=== PATIENT | female | born 1985 | race Caucasian/White ===

== ENCOUNTER 2024-05-15 00:32 | Emergency (ER) | payer OTHER, SELFPAY ==
[2024-05-15 00:36] VITALS: BP 139/94; PULSE 78; TEMP 36.5; O2SAT 100; BMI 37.1
--- NOTE | 2024-05-15 01:19 | CT_ITS ---
[address] [address] Patient Name: AMI BOWER MRN: [id number] date: 1985 Sex: F Assigned Patient Location: ER Current Patient Location: Accession/Order Number: [id number] Exam Date: 05/15/2024 02:00 Report Date: 05/15/2024 03:38 At the request of: JUNI MCKEON Procedure: CT soft tissue neck w con EXAMINATION: CT Soft Tissue Neck with IV Contrast TECHNIQUE: Axial CT imaging of the neck was performed following the intravenous injection of contrast material according to the standard protocol. Sagittal and coronal 2-D reformats were made from source images. CONTRAST: The amount and type of contrast are recorded int he medical record. QPP DOCUMENTATION: At least one of the following dose reduction techniques was utilized: Iterative reconstruction, and/or Automatic Exposure Control, and/or mA/kV adjustment based on body size. INDICATION: . FB sensation pharynx COMPARISON: None FINDINGS: Pharynx/Larynx: The nasopharynx, oropharynx, hypopharynx, and larynx are symmetric and without evidence of mass. The visualized trachea and visualized esophagus are unremarkable. Oral Cavity: The visualized portions of the oral tongue and floor of mouth are unremarkable. Lymph Nodes: No pathologically enlarged cervical lymph nodes. Vascular: The vascular structures of the neck are unremarkable. Thyroid: The thyroid gland is unremarkable. Parotid and Submandibular Glands: The submandibular and parotid glands have a normal appearance. Osseous Structures: Unremarkable. Orbits and Paranasal Sinuses: The visualized orbits and paranasal sinuses are unremarkable. Intracranial: The visualized intracranial structures are unremarkable. Lung Apices: The visualized lung apices are clear. CT/CT soft tissue neck w con IMPRESSION: No suspicious masses, fluid collections, or adenopathy. Electronically authenticated by: YOGI GERONIMO Date: 05/15/2024 03:38
--- NOTE | 2024-05-15 01:20 | ED.URI1 ---
HPI - URI/Sore Throat General Chief Complaint: Upper Respiratory Infection Stated Complaint: NEED 2ND OPINION SORE THROAT Time Seen by Provider: 05/15/24 01:10 Source: patient Limitations: no limitations History of Present Illness HPI Narrative: patient presents complaining of sensation of something in her throat. Not able to provide any history of what may possibly stuck in her throat. Throat is sore elder. when swallowing something sweet or spicy. No problem swallowing water. Required intubation 2 weeks ago due to a procedure for her hip. Does not recall any problem with her throat after the procedure. Her symptoms present past 2-3 days. Has history of GERD but does not take any medication for GERD. Did have a fever last week that has not returned Related Data Home Medications ?Medication ?Instructions ?Recorded ?Confirmed acetaminophen 500 mg tablet mg 05/15/24 amoxicillin 875 mg tablet mg 05/15/24 aspirin 81 mg tablet,delayed mg 05/15/24 release buspirone 15 mg tablet mg 05/15/24 cyclobenzaprine 10 mg tablet mg 05/15/24 docusate sodium 100 mg capsule mg PO 05/15/24 lurasidone 40 mg tablet mg 05/15/24 meloxicam 15 mg tablet mg 05/15/24 naproxen 500 mg tablet mg 05/15/24 olanzapine 10 mg tablet mg 05/15/24 oxycodone 5 mg tablet mg 05/15/24 trazodone 100 mg tablet mg 05/15/24 Allergies Allergy/AdvReac Type Severity Reaction Status Date / Time No Known Drug Allergies Allergy Verified 05/15/24 00:41 Review of Systems ROS Status of ROS 10 or more systems reviewed and unremarkable except as noted in history and below Exam Constitutional Vital Signs, click to edit/add: Last Vital Signs Temp 97.7 F 05/15/24 00:36 Pulse 78 05/15/24 00:36 Resp 14 05/15/24 00:36 BP 139/94 H 05/15/24 00:36 Pulse Ox 100 05/15/24 00:36 O2 Del Method Room Air 05/15/24 00:36 Common normals: no apparent distress, average body habitus, oriented x3, no limitations, healthy appearing, alert and well nourished [facility] Common normals: normocephalic and head/scalp atraumatic Other: mild erythema of the pharynx Eye Common normals: EOMs intact bilaterally and conjunctivae normal Neck & C-Spine Common normals: full ROM and no lymphadenopathy Respiratory Common normals: normal respiratory effort, no retractions, no use of accessory muscles and clear to auscultation bilaterally Cardio Common normals: regular rate, regular rhythm, S1 normal heart sound and S2 normal heart sound GI Common normals: Normal to inspection, nondistended, normoactive bowel sounds present, soft to palpation and non-tender Extremity Common normals: normal to inspection Neuro Common normals: oriented x3, CN's II-XII intact bilaterally, moves all extremities and no focal motor deficits Psych Appearance: grossly normal Course Vital Signs Vital signs: Vital Signs Temperature 97.7 F 05/15/24 00:36 Pulse Rate 78 05/15/24 00:36 Respiratory Rate 14 05/15/24 00:36 Blood Pressure 139/94 H 05/15/24 00:36 Pulse Oximetry 100 05/15/24 00:36 Oxygen Delivery Method Room Air 05/15/24 00:36 Temperature 97.7 F 05/15/24 00:36 Pulse Rate 78 05/15/24 00:36 Respiratory Rate 14 05/15/24 00:36 Blood Pressure 139/94 H 05/15/24 00:36 Pulse Oximetry 100 05/15/24 00:36 Oxygen Delivery Method Room Air 05/15/24 00:36 MDM - URI/Sore Throat MDM Narrative Medical decision making narrative: patient presents with complaint of sensation of something in her throat. burning discomfort when swallowing something sweet or sour/salty. No problem swallowing water. Not short of breath. Pharynx with mild erythema. History of GERD that she is not treating. CT soft tissue neck without any obvious abnorms. Patient discharged with prescription of Prilosec and amoxicillin Lab Data Labs: Lab Results 05/15/24 Range/Units 01:45 WBC 8.4 (4.0-11.0) 10^3/uL RBC 5.50 H (4.20-5.40) 10^6/uL Hgb 14.9 (12.0-16.0) g/dL Hct 45.4 (36.0-48.0) % MCV 82.5 (81.0-99.0) fL MCH 27.1 (26.7-34.0) pg MCHC 32.8 (29.9-35.2) g/dL RDW 12.6 (11.0-15.0) % Plt Count 330 (150-450) 10^3/uL MPV 10.8 (9.5-13.5) fL Neut % (Auto) 57.7 (43.0-75.0) % Lymph % (Auto) 31.2 (20.5-60.0) % Treasure % (Auto) 6.9 (1.7-12.0) % Eos % (Auto) 3.7 (0.9-7.0) % Baso % (Auto) 0.4 (0.2-2.0) % Neut # (Auto) 4.9 (1.4-6.5) 10^3/uL Lymph # (Auto) 2.6 (1.2-3.8) 10^3/uL Treasure # (Auto) 0.6 (0.3-0.8) 10^3/uL Eos # (Auto) 0.3 (0.0-0.7) 10^3/uL Baso # (Auto) 0.0 (0.0-0.1) 10^3/uL Abs Immat Gran (auto) 0.01 (0.00-0.03) 10^3/uL Imm/Tot Granulo (auto) 0.1 (0.0-0.5) % Sodium 134 L (136-145) mmol/L Potassium 3.6 (3.5-5.1) mmol/L Chloride 101 (98-107) mmol/L Carbon Dioxide 25.5 (21.0-32.0) mmol/L Anion Gap 11.1 BUN 8.0 (7.0-18.0) mg/dL Creatinine 0.90 (0.55-1.02) mg/dL Est GFR ( Amer) >60 (>=60 mL/min/1.73m^2) Est GFR (Non-Af Amer) >60 (>=60 mL/min/1.73m^2) BUN/Creatinine Ratio 8.9 Glucose 99 (74-106) mg/dL Calcium 9.1 (8.5-10.1) mg/dL Imaging Data Chest x-ray: Radiologist's impression: ITS Impressions Soft Tissue Neck CT 05/15/24 01:19 IMPRESSION: No suspicious masses, fluid collections, or adenopathy. Electronically authenticated by: YOGI GERONIMO Date: 05/15/2024 03:38 Discharge Plan Discharge Chief Complaint: Upper Respiratory Infection Clinical Impression: Pharyngitis, GERD (gastroesophageal reflux disease) Patient Disposition: Home, Self-Care Prescriptions / Home Meds: No Action cyclobenzaprine 10 mg tablet meloxicam 15 mg tablet olanzapine 10 mg tablet aspirin 81 mg tablet,delayed release (DR/EC) acetaminophen 500 mg tablet amoxicillin 875 mg tablet trazodone 100 mg tablet docusate sodium 100 mg capsule PO naproxen 500 mg tablet buspirone 15 mg tablet oxycodone 5 mg tablet lurasidone 40 mg tablet Print Language: Tamazight Instructions: Pharyngitis (ED), GERD (Gastroesophageal Reflux Disease) (ED) Additional Instructions: Prilosec: take once daily for heartburn/gerd Amoxicillin: take two tablets twice daily for 10 days for pharyngitis. Follow up with PCP this week. Referrals: CASI SERRA [Primary Care Provider] - 1 week
[2024-05-15 01:55] LABS: Basophils Percent Auto 0.4 % (0.2-2.0); Eosinophils Absolute Auto 0.3 10^3/uL (0.0-0.7); Eosinophils Percent Auto 3.7 % (0.9-7.0); Hematocrit 45.4 % (36.0-48.0); Hemoglobin 14.9 g/dL (12.0-16.0); Immature Granulocytes Abs Auto 0.01 10^3/uL (0.00-0.03); Immature Granulocytes Pct Auto 0.1 % (0.0-0.5); Lymphocytes Absolute Auto 2.6 10^3/uL (1.2-3.8); Lymphocytes Percent Auto 31.2 % (20.5-60.0); Mean Corpuscular HGB Conc 32.8 g/dL (29.9-35.2); Mean Corpuscular Hemoglobin 27.1 pg (26.7-34.0); Mean Corpuscular Volume 82.5 fL (81.0-99.0); Mean Platelet Volume 10.8 fL (9.5-13.5); Monocytes Absolute Auto 0.6 10^3/uL (0.3-0.8); Monocytes Percent Auto 6.9 % (1.7-12.0); Neutrophils Absolute Auto 4.9 10^3/uL (1.4-6.5); Neutrophils Percent Auto 57.7 % (43.0-75.0); Platelet Count 330 10^3/uL (150-450); Red Cell Distribution Width 12.6 % (11.0-15.0); White Blood Count 8.4 10^3/uL (4.0-11.0)
[2024-05-15 02:00] LABS: Anion Gap 11.1; BUN Creatinine Ratio 8.9; Calcium 9.1 mg/dL (8.5-10.1); Carbon Dioxide 25.5 mmol/L (21.0-32.0); Chloride 101 mmol/L (98-107); Estimated GFR (African America >60 (>=60 mL/min/1.73m^2); Estimated GFR (Non-African Ame >60 (>=60 mL/min/1.73m^2); Glucose 99 mg/dL (74-106); Potassium 3.6 mmol/L (3.5-5.1); Sodium 134 mmol/L (136-145)
== END 2024-05-15 04:14 | disposition home or self-care (01) ==
PROVIDERS: Emergency Provider Internal Medicine; Family Provider Physician Assistant; PCP Physician Assistant
DX: J02.9 Acute pharyngitis, unspecified (principal); K21.9 Gastro-esophageal reflux disease without esophagitis
CPT/HCPCS: 36415; 70491; 80048; 85025; 99285; Q9967

== ENCOUNTER 2025-05-14 17:23 | Emergency (ER) | payer OTHER, SELFPAY ==
[2025-05-14 17:29] VITALS: BP 127/82; PULSE 75; TEMP 37; O2SAT 100; BMI 40.4
--- NOTE | 2025-05-14 17:47 | ED_ITS ---
HPI HPI - General Adult General Chief complaint: Headache Stated complaint: HEADACHE, DIZZY, VOMITING, SHAKY BODY Time Seen by Provider: 05/14/25 17:37 Source: patient Mode of arrival: walk-in History of Present Illness HPI narrative: Patient with a history of migraine headaches presents with a headache that began upon awakening today. She describes the headache as consistent with her typical migraine exacerbations. She reports associated nausea and vomiting, which prevented her from taking her usual Rybelsus. She denies vision changes, abdominal pain, urinary changes, or leg pain. No shortness of breath. She denies the possibility of due to prior tubal ligation. She is sexually active. Of note, she had hip surgery about a month ago and attempted to attend rehab today but was unable to complete the session due to the severity of her headache. She has required ER visits for similar exacerbations in the past, most recently last week. No other complaints. Related Data Home Medications ?Medication ?Instructions ?Recorded ?Confirmed acetaminophen 500 mg tablet mg 05/15/24 amoxicillin 875 mg tablet mg 05/15/24 aspirin 81 mg tablet,delayed mg 05/15/24 release buspirone 15 mg tablet mg 05/15/24 cyclobenzaprine 10 mg tablet mg 05/15/24 docusate sodium 100 mg capsule mg PO 05/15/24 lurasidone 40 mg tablet mg 05/15/24 meloxicam 15 mg tablet mg 05/15/24 naproxen 500 mg tablet mg 05/15/24 olanzapine 10 mg tablet mg 05/15/24 oxycodone 5 mg tablet mg 05/15/24 trazodone 100 mg tablet mg 05/15/24 Previous Rx's ?Medication ?Instructions ?Recorded prochlorperazine maleate 10 mg 10 mg PO TID PRN nausea and 05/14/25 tablet (Compazine) vomiting #14 tabs Allergies Allergy/AdvReac Type Severity Reaction Status Date / Time No Known Drug Allergies Allergy Verified 05/15/24 00:41 Opioid HPI Opioid Management Most Recent Opioid Data: Last Pain Scale 10 Today, 19:05 Last MAR Pain Assessment Today, 19:05 [facility] Social History Little interest or pleasure in doing things: not at all Feeling down, depressed, or hopeless: not at all Exam Narrative Exam Narrative: * General:?Alert, oriented, tearful but in no acute distress. * HEENT:?Pupils equal, round, and reactive to light. No focal findings. * Neck:?Supple, no meningismus. * Cardiac:?Regular rate and rhythm, no murmurs. * Respiratory:?Lungs clear to auscultation bilaterally. * Abdomen:?Soft, non-tender, good bowel sounds. * Neuro:?Alert and oriented, no focal deficits. * Extremities:?No edema, no tenderness, no leg pain. Constitutional Vital Signs, click to edit/add: Last Vital Signs Temp 98.6 F 05/14/25 17:29 Pulse 75 05/14/25 17:29 Resp 16 05/14/25 20:36 BP 131/72 05/14/25 20:36 Pulse Ox 98 05/14/25 20:36 O2 Del Method Room Air 05/14/25 20:36 Course Vital Signs Vital signs: Vital Signs Temperature 98.6 F 05/14/25 17:29 Pulse Rate 75 05/14/25 17:29 Respiratory Rate 18 05/14/25 17:29 Blood Pressure 127/82 05/14/25 17:29 Pulse Oximetry 100 05/14/25 17:29 Oxygen Delivery Method Room Air 05/14/25 17:29 Temperature 98.6 F 05/14/25 17:29 Pulse Rate 75 05/14/25 17:29 Respiratory Rate 16 05/14/25 20:36 Blood Pressure 131/72 05/14/25 20:36 Pulse Oximetry 98 05/14/25 20:36 Oxygen Delivery Method Room Air 05/14/25 20:36 Medical Decision Making MDM Narrative Medical decision making narrative: Patient with a known history of migraines presents with a typical migrainous headache, associated with nausea and vomiting. No red flag symptoms (no vision changes, focal neurologic deficits, neck stiffness, or altered mental status). Recent hip surgery noted, but no signs of DVT or PE. Labs including CBC and chemistry panel are unremarkable. Treated in the ED with Toradol, Compazine, IV fluids, and diphenhydramine, with significant improvement in symptoms. Patient is stable for discharge and will follow up with neurology for ongoing headache management. Discharge instructions provided, including return precautions for any new or worsening symptoms. Medical Records Medical records reviewed: Yes I reviewed the patient's medical records Lab Data Lab results reviewed: Yes I reviewed the patient's lab results Labs: Lab Results 05/14/25 05/14/25 Range/Units 19:01 20:08 WBC 10.0 (4.0-11.0) 10^3/uL RBC 4.98 (4.20-5.40) 10^6/uL Hgb 13.9 (12.0-16.0) g/dL Hct 41.0 (36.0-48.0) % MCV 82.3 (81.0-99.0) fL MCH 27.9 (26.7-34.0) pg MCHC 33.9 (29.9-35.2) g/dL RDW 12.9 (11.0-15.0) % Plt Count 244 (150-450) 10^3/uL MPV 10.6 (9.5-13.5) fL Neut % (Auto) 74.7 (43.0-75.0) % Lymph % (Auto) 17.2 L (20.5-60.0) % Haines % (Auto) 6.0 (1.7-12.0) % Eos % (Auto) 1.5 (0.9-7.0) % Baso % (Auto) 0.4 (0.2-2.0) % Neut # (Auto) 7.5 H (1.4-6.5) 10^3/uL Lymph # (Auto) 1.7 (1.2-3.8) 10^3/uL Haines # (Auto) 0.6 (0.3-0.8) 10^3/uL Eos # (Auto) 0.2 (0.0-0.7) 10^3/uL Baso # (Auto) 0.0 (0.0-0.1) 10^3/uL Abs Immat Gran (auto) 0.02 (0.00-0.03) 10^3/uL Imm/Tot Granulo (auto) 0.2 (0.0-0.5) % Sodium 139 (136-145) mmol/L Potassium 4.0 (3.5-5.1) mmol/L Chloride 102 (98-107) mmol/L Carbon Dioxide 23.7 (21.0-32.0) mmol/L Anion Gap 17.3 BUN 9.0 (7.0-18.0) mg/dL Creatinine 0.59 (0.55-1.02) mg/dL Est GFR ( Amer) >60 (>=60 mL/min/1.73m^2) Est GFR (Non-Af Amer) >60 (>=60 mL/min/1.73m^2) BUN/Creatinine Ratio 15.3 Glucose 102 (74-106) mg/dL Calcium 9.2 (8.5-10.1) mg/dL Magnesium 2.0 (1.8-2.4) mg/dL Total Bilirubin 0.6 (0.2-1.0) mg/dL AST 11 L (15-37) U/L ALT 13 L (14-59) U/L Alkaline Phosphatase 132 H (46-116) U/L Total Protein 7.9 (6.4-8.2) g/dL Albumin 4.2 (3.4-5.0) g/dL Globulin 3.7 g/dL Albumin/Globulin Ratio 1.1 Urine Color Yellow (YELLOW) Urine Clarity Clear (CLEAR) Urine pH 7.0 (5.0-9.0) Ur Specific [place] 1.015 (1.005-1.025) Urine Protein Negative (NEG/TRACE) mg/dL Urine Glucose (UA) Negative (NEGATIVE) mg/dL Urine Ketones >=80 A (NEGATIVE) mg/dL Urine Occult Blood Negative (NEGATIVE) Urine Nitrite Negative (NEGATIVE) Urine Bilirubin Negative (NEGATIVE) Urine Urobilinogen 1.0 (0.2-1.0) EU/dL Ur Leukocyte Esterase Negative (NEGATIVE) Urine RBC None seen (0-2) #/HPF Urine WBC 0-2 A (NONE SEEN) #/HPF Ur Squamous Epith Cells Rare (NONE/RARE) #/LPF Urine Crystals None seen (None Seen) #/HPF Urine Bacteria Trace A (NONE SEEN) #/HPF Urine Casts None seen (NONE SEEN) #/LPF Urine Mucus Small A (NONE SEEN) Ur Culture Indicated? No Discharge Plan Discharge Chief Complaint: Headache Clinical Impression: Headache Patient Disposition: Home, Self-Care Time of Disposition Decision: 20:21 Condition: Good Prescriptions / Home Meds: New prochlorperazine maleate [Compazine] 10 mg tablet 10 mg PO TID PRN (Reason: nausea and vomiting) Qty: 14 0RF No Action cyclobenzaprine 10 mg tablet meloxicam 15 mg tablet olanzapine 10 mg tablet aspirin 81 mg tablet,delayed release (DR/EC) acetaminophen 500 mg tablet amoxicillin 875 mg tablet trazodone 100 mg tablet docusate sodium 100 mg capsule PO naproxen 500 mg tablet buspirone 15 mg tablet oxycodone 5 mg tablet lurasidone 40 mg tablet Print Language: Marshallese Instructions: Acute Headache (ED) Referrals: CASI SERRA [Primary Care Provider, Family Practice] - 1 week Discharge Date/Time: 05/14/25 20:38
[2025-05-14] MEDS: 0.9 % SODIUM CHLORIDE 1,000 ML 999 ML IV (19:04)
[2025-05-14] MEDS: KETOROLAC TROMETHAMINE 30 MG/ML VIAL 15 MG IVP (19:05)
[2025-05-14] MEDS: PROCHLORPERAZINE 10 MG/2 ML VIAL 5 MG IV (19:05)
[2025-05-14] MEDS: DIPHENHYDRAMINE HCL 50 MG/ML VIAL 25 MG IVP (19:05)
[2025-05-14 19:08] LABS: Hematocrit 41.0 % (36.0-48.0); Hemoglobin 13.9 g/dL (12.0-16.0); Immature Granulocytes Abs Auto 0.02 10^3/uL (0.00-0.03); Immature Granulocytes Pct Auto 0.2 % (0.0-0.5); Lymphocytes Absolute Auto 1.7 10^3/uL (1.2-3.8); Mean Corpuscular HGB Conc 33.9 g/dL (29.9-35.2); Mean Corpuscular Hemoglobin 27.9 pg (26.7-34.0); Mean Corpuscular Volume 82.3 fL (81.0-99.0); Platelet Count 244 10^3/uL (150-450); Red Blood Count 4.98 10^6/uL (4.20-5.40); White Blood Count 10.0 10^3/uL (4.0-11.0)
[2025-05-14 19:26] LABS: Alanine Aminotransferase 13 U/L (14-59); Albumin Globulin Ratio 1.1; Albumin Level 4.2 g/dL (3.4-5.0); Alkaline Phosphatase 132 U/L (46-116); Anion Gap 17.3; Aspartate Amino Transferase 11 U/L (15-37); Blood Urea Nitrogen 9.0 mg/dL (7.0-18.0); Calcium 9.2 mg/dL (8.5-10.1); Carbon Dioxide 23.7 mmol/L (21.0-32.0); Chloride 102 mmol/L (98-107); Estimated GFR (African America >60 (>=60 mL/min/1.73m^2); Estimated GFR (Non-African Ame >60 (>=60 mL/min/1.73m^2); Globulin 3.7 g/dL; Glucose 102 mg/dL (74-106); Magnesium 2.0 mg/dL (1.8-2.4); Potassium 4.0 mmol/L (3.5-5.1); Sodium 139 mmol/L (136-145); Total Protein 7.9 g/dL (6.4-8.2)
--- NOTE | 2025-05-14 19:28 | PC.NURSE ---
Pt states that she has experienced some relief of pain.
--- NOTE | 2025-05-14 19:42 | PC.NURSE ---
Spouse leaves for work. Pt's mother here to be with her.
[2025-05-14 20:19] LABS: Glucose Urine UA NEGATIVE (NEGATIVE)
[2025-05-14 20:28] LABS: Cast Seen? NONE SEEN #/LPF (NONE SEEN); Crystals Seen? None Seen #/HPF (None Seen); Urine Culture Indicated NO
[2025-05-14 20:36] VITALS: BP 131/72; O2SAT 98
== END 2025-05-14 20:38 | disposition home or self-care (01) ==
PROVIDERS: Physician Assistant; Emergency Provider Internal Medicine; Family Provider Physician Assistant; PCP Physician Assistant
DX: R51.9 Headache, unspecified (principal); Z98.51 Tubal ligation status
CPT/HCPCS: 36415; 80053; 81001; 83735; 85025; 96361; 96374; 96375; 99284; J0780; J1200; J1885